=== PATIENT | male | born 1975 | race Caucasian/White ===

== ENCOUNTER 2024-01-18 18:45 | Emergency (ER) | payer BC, SELFPAY ==
[2024-01-18 18:52] VITALS: BP 180/108; PULSE 69; RESP 16; TEMP 36.2; O2SAT 100
[2024-01-18 20:53] VITALS: BP 173/100
[2024-01-18 21:13] VITALS: BP 184/111; PULSE 78; RESP 17; O2SAT 98
[2024-01-18 22:05] VITALS: BP 166/113; PULSE 83; RESP 24; O2SAT 97
[2024-01-18] MEDS: chlordiazePOXIDE (*CRX) 25 MG CAPSULE PO (22:05)
--- NOTE | 2024-01-18 22:16 | ED.RECABL ---
HPI - Recheck/Abnormal Lab/Rx General Chief Complaint: Recheck/Abnormal Lab/Rx Stated Complaint: htn Time Seen by Provider: 01/18/24 21:05 History of Present Illness HPI narrative: patient was just diagnosed with hypertension a few days ago and started on amlodipine, he and his think that the real reason that he has been hypertensive if he is he is trying to quit drinking alcohol. He generally drinks between 8-12 drinks a day, and has been cutting down with last drink yesterday, his family members are alcoholics who early and he is not want that to happen to him. He does report being quite anxious and jittery. Otherwise no chest pain, shortness of breath, headache. Related Data Allergies Allergy/AdvReac Type Severity Reaction Status Date / Time Penicillins Allergy Unknown hives Verified 01/18/24 19:00 Sulfa (Sulfonamide Allergy Unknown Rash, fever Verified 01/18/24 19:00 Antibiotics) Review of Systems Review of Systems: All systems reviewed & are unremarkable except as noted in HPI and below Exam Narrative: EXAMINATION OF ORGAN SYSTEMS/BODY AREAS: Constitutional: Vital signs per nursing GENERAL: appear slightly anxious HEAD: Normal with no signs of head trauma. EYES: EOMI, conjunctiva normal ENT: Hearing grossly intact LUNGS: Nonlabored breathing. HEART: [Regular rate and rhythm] ABD: [Soft], [nontender to palpation] EXT: Normal range of motion SKIN: [No rashes or lesions.] NEURO: [Alert and oriented x 3. No gross focal sensory or strength deficits. very slight tremors] PSYCH: anxious affect Course Vital Signs Vital signs: Vital Signs Temperature 97.2 F L 01/18/24 18:52 Pulse Rate 69 01/18/24 18:52 Respiratory Rate 16 01/18/24 18:52 Blood Pressure 180/108 H 01/18/24 18:52 Pulse Oximetry 100 01/18/24 18:52 Oxygen Delivery Room Air 01/18/24 18:52 Temperature 97.2 F L 01/18/24 18:52 Pulse Rate 83 01/18/24 22:05 Respiratory Rate 24 H 01/18/24 22:05 Blood Pressure 165/100 H 01/18/24 22:40 Pulse Oximetry 97 01/18/24 22:05 Oxygen Delivery Room Air 01/18/24 18:52 MDM - Recheck/Abnormal Lab/Rx MDM Narrative Medical decision making narrative: Patient with asymptomatic hypertension; he does appear quite anxious here and he thinks that am may be from alcohol withdrawal. No signs or symptoms of end organ dysfunction; no chest pain or shortness of breath, neurological deficits, severe headaches, visual disturbance, oliguria, or symptoms of dissection/AAA). he has already recently been started on amlodipine, has never been in delirium tremens in the past, he is otherwise very stable appearing here, and he and his at bedside are comfortable with trying a Librium taper at home, with close supervision and close follow-up, return to the ER for any worsening symptoms. One dose provided here and on re-evaluation he does feel better, vital signs improved, patient expressed understanding of the instructions and strongly advised to follow-up with PMD for further management. Discharge Plan Discharge Clinical Impression: Hypertension, Anxiety, Alcohol withdrawal Patient Disposition: Home, Self-Care Condition: Stable Instructions: Antibiotic Form, Alcohol Withdrawal (ED), Hypertension (ED), Anxiety (ED) Additional Instructions: Please follow-up with your primary care doctor, continue taking the medications, and take the new alcohol withdrawal/ anxiety medicines as directed. Come back to the ER immediately if you have any concerns or issues. Prescriptions: New chlordiazepoxide HCl 25 mg capsule 25 mg PO Q6-12H PRN (Reason: alcohol withdrawal) Qty: 15 0RF Rx Instructions: Take 2 tabs every 6 to 12 hours on day 1; 1 tab every 6 hours on day 2; 1 tab every 12 hours on day 3; 1 tab at night on day 4. Follow-up/Referrals: Jocelyn,RACHEL Colon [Primary Care Provider] - 2 Days
[2024-01-18 22:40] VITALS: BP 165/100
== END 2024-01-18 22:43 | disposition home or self-care (01) ==
PROVIDERS: Emergency Provider Emergency Medicine; PCP Physician Assistant
DX: I10 Essential (primary) hypertension (principal); F41.9 Anxiety disorder, unspecified; F10.239 Alcohol dependence with withdrawal, unspecified
CPT/HCPCS: 99283; A9270